=== PATIENT | female | born 1975 | race Hispanic/Latino ===

== ENCOUNTER 2017-06-17 22:04 | Emergency (ER) | payer SELFPAY ==
[~2017-06-17 22:04] MED LIST: ALBU8.5H8 IH; AMIL5TAB8 PO
[2017-06-17] MEDS ORDERED: PREDNISOLONE 15 MG/5 ML ONE (22:28)
== END 2017-06-17 23:32 | disposition home or self-care (01) ==
LOC: EDH 22:04
DX: G51.0 Bell's palsy (principal); J45.909 Unspecified asthma, uncomplicated; I11.0 Hypertensive heart disease with heart failure; I50.9 Heart failure, unspecified; E11.9 Type 2 diabetes mellitus without complications; Z91.041 Radiographic dye allergy status
CPT/HCPCS: 82948

== ENCOUNTER 2017-06-22 16:50 | Emergency (ER) | payer SELFPAY ==
[2017-06-22 17:29] LABS: AMPHET/METH SCREEN,URINE NEGATIVE (NEGATIVE); BARBITURATE SCREEN, URINE NEGATIVE (NEGATIVE); BENZODIAZEPINES SCREEN,URINE NEGATIVE (NEGATIVE); CANNABINOID SCREEN,URINE NEGATIVE (NEGATIVE); COCAINE SCREEN,URINE NEGATIVE (NEGATIVE); OPIATE SCREEN,URINE NEGATIVE (NEGATIVE); PHENCYCLIDINE SCREEN,URINE NEGATIVE (NEGATIVE)
[2017-06-22] MEDS ORDERED: SODIUM CHLORIDE 0.9% 1000ML 1,000 ML IV ONE (17:56)
[2017-06-22 18:00] LABS: EOSINOPHILS % (AUTO) 2.4 % (0.0-8.0); HEMATOCRIT 30.2 % (36-48); LYMPHOCYTES % (AUTO) 21.6 % (21.0-51.0); MEAN CORPUSCULAR HEMOGLOBIN 24.6 pg (27.0-33.0); MEAN CORPUSCULAR HGB CONC 32.9 g/dL (32.0-36.0); MEAN CORPUSCULAR VOLUME 74.9 fL (79-99); MONOCYTES % (AUTO) 12.9 % (3.0-13.0); NEUTROPHILS % (AUTO) 62.1 % (40.0-77.0); PLATELET COUNT (AUTO) 293 K/uL (130-400); RED BLOOD CELL COUNT(AUTO) 4.03 MIL/uL (4.00-5.50); RED CELL DISTRIBUTION WIDTH 17.2 % (11.0-15.5); WHITE BLOOD COUNT (AUTO) 7.1 K/uL (4.8-10.8)
[2017-06-22 18:07] LABS: POTASSIUM 4.1 mmol/L (3.5-5.1)
[2017-06-22] MEDS ORDERED: IPRATROPIUM/ALBUTEROL SULFATE 3 ML SOLUTION IH ONE (18:10)
[2017-06-22 18:12] LABS: ALBUMIN 2.9 g/dL (3.5-5.0); BILIRUBIN,DIRECT 0.1 mg/dL (0.0-0.3); BILIRUBIN,TOTAL 0.4 mg/dL (0.2-1.0)
[2017-06-22 18:48] LABS: B-TYPE NATRIURETIC PEPTIDE 19 pg/mL (0-100)
== END 2017-06-22 20:19 | disposition home or self-care (01) ==
LOC: EDH 16:50
DX: J09.X2 Influenza due to identified novel influenza A virus with other respiratory manifestations (principal); J20.9 Acute bronchitis, unspecified; R20.2 Paresthesia of skin; J45.909 Unspecified asthma, uncomplicated; I11.0 Hypertensive heart disease with heart failure; I50.9 Heart failure, unspecified; E11.9 Type 2 diabetes mellitus without complications; Z91.041 Radiographic dye allergy status
CPT/HCPCS: 36415; 70450; 71045; 80048; 80076; 80305; 81025; 82550; 83880; 84484; 85025; 87804 ×2; 93005; 94640; 96360; 96361; 99285; J7030

== ENCOUNTER 2017-07-31 08:17 | Emergency (ER) | payer OTHER ==
[2017-07-31 08:37] LABS: APPEARANCE,URINE Clear (CLEAR); BILIRUBIN,URINE Negative (NEGATIVE); COLOR,URINE Yellow (YELLOW); GLUCOSE, URINE (UA) Negative (NEGATIVE); KETONES,URINE Negative (NEGATIVE); LEUKOCYTE ESTERASE ,URINE Small (NEGATIVE); NITRATE,URINE Negative (NEGATIVE); OCCULT BLOOD,URINE Negative (NEGATIVE); PROTEIN,URINE Negative (NEGATIVE)
[2017-07-31] MEDS ORDERED: ACETAMINOPHEN-CODEINE ELIXIR 5 ML UDCUP ONE (08:38)
[2017-07-31 08:42] LABS: BACTERIA,URINE Rare /HPF (None Seen); HCG,QUAL RESULT NEGATIVE (NEGATIVE); SQUAMOUS EPITHELIAL CELL,UR Rare /LPF (0-2); WBC,URINE 0-1 /HPF (0-1)
== END 2017-07-31 09:11 | disposition home or self-care (01) ==
LOC: EDH 08:17
DX: M62.830 Muscle spasm of back (principal); M54.5 Low back pain; J45.909 Unspecified asthma, uncomplicated; I11.0 Hypertensive heart disease with heart failure; I50.9 Heart failure, unspecified; E11.9 Type 2 diabetes mellitus without complications; Z91.041 Radiographic dye allergy status
CPT/HCPCS: 81001; 81025

== ENCOUNTER 2017-08-16 20:41 | Emergency (ER) | payer SELFPAY ==
[2017-08-16] MEDS ORDERED: ASPIRIN 325 MG TABLET ONE (21:00)
[2017-08-16] MEDS ORDERED: MAG HYDROX/AL HYDROX/SIMETH ES 30 ML SUSP UDCUP ONE (21:00)
[2017-08-16] MEDS ORDERED: LIDOCAINE HCL 2% VISCOUS 15 ML UDCUP ONE (21:00)
[2017-08-16 21:01] LABS: BASOPHILS % (AUTO) 0.6 % (0.0-5.0); EOSINOPHILS % (AUTO) 2.1 % (0.0-8.0); HEMATOCRIT 29.9 % (36-48); LYMPHOCYTES % (AUTO) 32.5 % (21.0-51.0); MEAN CORPUSCULAR HEMOGLOBIN 26.5 pg (27.0-33.0); MEAN CORPUSCULAR VOLUME 75.7 fL (79-99); MONOCYTES % (AUTO) 5.2 % (3.0-13.0); NEUTROPHILS % (AUTO) 59.6 % (40.0-77.0); PLATELET COUNT (AUTO) 364 K/uL (130-400); RED BLOOD CELL COUNT(AUTO) 3.95 MIL/uL (4.00-5.50); RED CELL DISTRIBUTION WIDTH 17.9 % (11.0-15.5); WHITE BLOOD COUNT (AUTO) 8.6 K/uL (4.8-10.8)
[2017-08-16 21:17] LABS: INR 0.96 (0.85-1.15); PARTIAL THROMBOPLASTIN TIME 25.9 SEC (26.3-35.5); PROTHROMBIN TIME 10.1 SEC (9.6-11.6)
[2017-08-16 21:18] LABS: CARBON DIOXIDE 29 mmol/L (21-32); CHLORIDE 103 mmol/L (101-111); CREATININE 0.7 mg/dL (0.5-1.5); GLOMERULAR FILTR. RATE CALC 98 mL/min (>60); GLUCOSE,RANDOM 137 mg/dL (70-105); POTASSIUM 4.3 mmol/L (3.5-5.1); SODIUM SERUM 138 mmol/L (136-145); UREA NITROGEN, BLOOD 22 mg/dL (7-18)
[2017-08-16 21:33] LABS: ALANINE AMINOTRANSFERASE 50 U/L (12-78); ALBUMIN 3.2 g/dL (3.5-5.0); ASPARTATE AMINOTRANSFERASE 36 U/L (10-37); BILIRUBIN,TOTAL 0.4 mg/dL (0.2-1.0); CREATINE KINASE MB < 0.5 ng/mL (0.5-3.6); CREATINE KINASE, TOTAL 98 U/L (21-232); MYOGLOBIN 17 ng/mL (10-92); TOTAL PROTEIN, SERUM 7.8 g/dL (6.0-8.3)
[2017-08-16 21:38] LABS: B-TYPE NATRIURETIC PEPTIDE 23 pg/mL (0-100)
[2017-08-16] MEDS ORDERED: SODIUM CHLORIDE 0.9% 1000ML 1,000 ML IV ONE (22:29)
[2017-08-16] MEDS ORDERED: ONDANSETRON HCL 4 MG/2 ML VIAL ONE (22:29)
== END 2017-08-17 00:28 | disposition home or self-care (01) ==
LOC: EDH 20:41
DX: R07.89 Other chest pain (principal); J45.909 Unspecified asthma, uncomplicated; E11.9 Type 2 diabetes mellitus without complications; I11.0 Hypertensive heart disease with heart failure; I50.9 Heart failure, unspecified; Z91.041 Radiographic dye allergy status; Z98.51 Tubal ligation status; Z98.890 Other specified postprocedural states
CPT/HCPCS: 36415; 71045; 80053; 82550; 82553; 83874; 83880; 84484 ×2; 85025; 85610; 85730; 93005 ×3; 94761; 99285; J2405; J7030

== ENCOUNTER 2017-09-04 20:07 | Emergency (ER) | payer OTHER ==
[2017-09-04] MEDS ORDERED: ASPIRIN 325 MG TABLET ONE (22:36)
[2017-09-04] MEDS ORDERED: NITROGLYCERIN 1GM/1 INCH PACKET TD ONE (22:36)
[2017-09-04 23:39] LABS: BASOPHILS % (AUTO) 2.5 % (0.0-5.0); HEMATOCRIT 32.6 % (36-48); LYMPHOCYTES % (AUTO) 27.4 % (21.0-51.0); MEAN CORPUSCULAR HEMOGLOBIN 24.6 pg (27.0-33.0); MEAN CORPUSCULAR HGB CONC 32.5 g/dL (32.0-36.0); MEAN CORPUSCULAR VOLUME 75.8 fL (79-99); MONOCYTES % (AUTO) 5.5 % (3.0-13.0); NEUTROPHILS % (AUTO) 62.6 % (40.0-77.0); PLATELET COUNT (AUTO) 340 K/uL (130-400); RED CELL DISTRIBUTION WIDTH 17.1 % (11.0-15.5); WHITE BLOOD COUNT (AUTO) 8.2 K/uL (4.8-10.8)
[2017-09-04 23:43] LABS: CREATININE 0.6 mg/dL (0.5-1.5); POTASSIUM 3.5 mmol/L (3.5-5.1)
[2017-09-04 23:58] LABS: ALBUMIN 3.2 g/dL (3.5-5.0); BILIRUBIN,TOTAL 0.3 mg/dL (0.2-1.0); CREATINE KINASE MB 0.6 ng/mL (0.5-3.6); TOTAL PROTEIN, SERUM 7.8 g/dL (6.0-8.3)
[2017-09-05] MEDS ORDERED: ACETAMINOPHEN EXTRA STRENGTH 500 MG TABLET ONE (00:57)
== END 2017-09-05 02:05 | disposition home or self-care (01) ==
LOC: EDH 20:07
DX: R07.89 Other chest pain (principal); K20.9 Esophagitis, unspecified; I11.0 Hypertensive heart disease with heart failure; I50.9 Heart failure, unspecified; J45.909 Unspecified asthma, uncomplicated; E11.9 Type 2 diabetes mellitus without complications; Z98.51 Tubal ligation status; Z91.041 Radiographic dye allergy status; Z98.890 Other specified postprocedural states; Z79.899 Other long term (current) drug therapy
CPT/HCPCS: 36415; 71045; 80053; 82553; 84484; 85025; 86850; 86900; 86901; 93005; 99291

== ENCOUNTER 2017-10-03 21:49 | Emergency (ER) | payer MEDICAID, OTHER ==
[2017-10-03] MEDS ORDERED: ONDANSETRON ODT 4 MG TAB ONE (22:24)
[2017-10-03] MEDS ORDERED: ACETAMINOPHEN 325 MG TAB ONE (22:24)
[2017-10-03] MEDS ORDERED: ASPIRIN 325 MG TABLET ONE (22:24)
[2017-10-03 22:46] LABS: BASOPHILS % (AUTO) 0.9 % (0.0-5.0); EOSINOPHILS % (AUTO) 2.9 % (0.0-8.0); LYMPHOCYTES % (AUTO) 24.7 % (21.0-51.0); MEAN CORPUSCULAR HEMOGLOBIN 26.2 pg (27.0-33.0); MEAN CORPUSCULAR HGB CONC 34.2 g/dL (32.0-36.0); MEAN CORPUSCULAR VOLUME 76.6 fL (79-99); MONOCYTES % (AUTO) 5.8 % (3.0-13.0); NEUTROPHILS % (AUTO) 65.7 % (40.0-77.0); PLATELET COUNT (AUTO) 333 K/uL (130-400); RED BLOOD CELL COUNT(AUTO) 4.18 MIL/uL (4.00-5.50); RED CELL DISTRIBUTION WIDTH 16.4 % (11.0-15.5); WHITE BLOOD COUNT (AUTO) 9.8 K/uL (4.8-10.8)
[2017-10-03 22:56] LABS: CREATININE 0.9 mg/dL (0.5-1.5); POTASSIUM 3.9 mmol/L (3.5-5.1)
== END 2017-10-04 01:19 | disposition home or self-care (01) ==
LOC: EDH 21:49
DX: R07.89 Other chest pain (principal); R42 Dizziness and giddiness; R51 Headache; J45.909 Unspecified asthma, uncomplicated; E11.9 Type 2 diabetes mellitus without complications; I11.0 Hypertensive heart disease with heart failure; I50.9 Heart failure, unspecified; Z91.041 Radiographic dye allergy status
CPT/HCPCS: 36415; 80048; 84484; 85025; 93005; 99291

== ENCOUNTER 2017-12-05 06:44 | Emergency (ER) | payer MEDICAID, OTHER ==
[2017-12-05] MEDS ORDERED: KETOROLAC TROMETHAMINE 30MG/ML ONE (07:05)
[2017-12-05 07:26] LABS: APPEARANCE,URINE CLEAR (CLEAR); BILIRUBIN,URINE NEGATIVE (NEGATIVE); COLOR,URINE YELLOW (YELLOW); GLUCOSE, URINE (UA) NEGATIVE (NEGATIVE); KETONES,URINE NEGATIVE (NEGATIVE); LEUKOCYTE ESTERASE ,URINE SMALL (NEGATIVE); NITRATE,URINE NEGATIVE (NEGATIVE); OCCULT BLOOD,URINE NEGATIVE (NEGATIVE); PROTEIN,URINE NEGATIVE (NEGATIVE); UROBILINOGEN,URINE 0.2 mg/dL (0.2-1.0)
[2017-12-05 07:31] LABS: HCG,QUAL RESULT NEGATIVE (NEGATIVE)
[2017-12-05 07:37] LABS: BACTERIA,URINE Rare /HPF (None Seen); MUCUS,URINE Rare LPF (None Seen); RBC,URINE None Seen /HPF (0-1); SQUAMOUS EPITHELIAL CELL,UR Few /HPF (0-2); WBC,URINE 0-1 /HPF (0-1)
[2017-12-05 07:46] LABS: AMPHET/METH SCREEN,URINE NEGATIVE (NEGATIVE); BARBITURATE SCREEN, URINE NEGATIVE (NEGATIVE); BENZODIAZEPINES SCREEN,URINE NEGATIVE (NEGATIVE); CANNABINOID SCREEN,URINE NEGATIVE (NEGATIVE); COCAINE SCREEN,URINE NEGATIVE (NEGATIVE); OPIATE SCREEN,URINE NEGATIVE (NEGATIVE); PHENCYCLIDINE SCREEN,URINE NEGATIVE (NEGATIVE)
== END 2017-12-05 08:22 | disposition home or self-care (01) ==
LOC: EDH 06:44
DX: G89.29 Other chronic pain (principal); M54.5 Low back pain; M62.830 Muscle spasm of back; J45.909 Unspecified asthma, uncomplicated; I11.0 Hypertensive heart disease with heart failure; I50.9 Heart failure, unspecified; E11.9 Type 2 diabetes mellitus without complications; Z88.6 Allergy status to analgesic agent; Z91.041 Radiographic dye allergy status
CPT/HCPCS: 80305; 81001; 81025; 96372; 99284; J1885

== ENCOUNTER 2018-04-05 07:38 | Emergency (ER) | payer OTHER ==
[2018-04-05] MEDS ORDERED: DIAZEPAM 5 MG TABLET ONE (08:10)
[2018-04-05 08:30] LABS: BASOPHILS % (AUTO) 0.9 % (0.0-5.0); HEMATOCRIT 32.2 % (36-48); LYMPHOCYTES % (AUTO) 28.5 % (21.0-51.0); MEAN CORPUSCULAR HEMOGLOBIN 24.4 pg (27.0-33.0); MEAN CORPUSCULAR HGB CONC 32.9 g/dL (32.0-36.0); MEAN CORPUSCULAR VOLUME 74.2 fL (79-99); MONOCYTES % (AUTO) 4.3 % (3.0-13.0); NEUTROPHILS % (AUTO) 63.3 % (40.0-77.0); PLATELET COUNT (AUTO) 303 K/uL (130-400); RED BLOOD CELL COUNT(AUTO) 4.34 MIL/uL (4.00-5.50); RED CELL DISTRIBUTION WIDTH 17.4 % (11.0-15.5); WHITE BLOOD COUNT (AUTO) 6.9 K/uL (4.8-10.8)
[2018-04-05 08:36] LABS: CARBON DIOXIDE 29 mmol/L (21-32); CHLORIDE 102 mmol/L (101-111); CREATININE 0.6 mg/dL (0.5-1.5); GLOMERULAR FILTR. RATE CALC 117 mL/min (>60); GLUCOSE,RANDOM 122 mg/dL (70-105); POTASSIUM 5.9 mmol/L (3.5-5.1); SODIUM SERUM 135 mmol/L (136-145); UREA NITROGEN, BLOOD 15 mg/dL (7-18)
[2018-04-05 08:42] LABS: ALANINE AMINOTRANSFERASE 55 U/L (12-78); ALBUMIN 3.4 g/dL (3.5-5.0); ASPARTATE AMINOTRANSFERASE 78 U/L (10-37); BILIRUBIN,DIRECT < 0.1 mg/dL (0.0-0.3); BILIRUBIN,TOTAL 0.7 mg/dL (0.2-1.0); TOTAL PROTEIN, SERUM 8.6 g/dL (6.0-8.3)
[2018-04-05 09:59] LABS: B-TYPE NATRIURETIC PEPTIDE 9 pg/mL (0-100)
[2018-04-05] MEDS ORDERED: SODIUM CHLORIDE 0.9% 500ML 500 ML IV ONE (10:18)
[2018-04-05 12:09] LABS: CREATININE 0.6 mg/dL (0.5-1.5); POTASSIUM 4.2 mmol/L (3.5-5.1)
[2018-04-05] MEDS ORDERED: SODIUM CHLORIDE 0.9% 1000ML 1,000 ML IV ONE (15:19)
[2018-04-05] MEDS ORDERED: CEFTRIAXONE SODIUM 2 GM VIAL ONE (15:19)
[2018-04-05] MEDS ORDERED: ACETAMINOPHEN EXTRA STRENGTH 500 MG TABLET ONE ×2 (15:20→15:28)
[2018-04-05] MEDS ORDERED: ONDANSETRON HCL 4 MG/2 ML VIAL ONE (15:20)
[2018-04-05] MEDS ORDERED: KETOROLAC TROMETHAMINE 30MG/ML ONE (15:20)
== END 2018-04-05 12:41 | disposition home or self-care (01) ==
LOC: EDH 07:38
DX: R07.89 Other chest pain (principal); S13.8XXA Sprain of joints and ligaments of other parts of neck, initial encounter; J45.909 Unspecified asthma, uncomplicated; I11.0 Hypertensive heart disease with heart failure; I50.9 Heart failure, unspecified; E11.9 Type 2 diabetes mellitus without complications; Z88.6 Allergy status to analgesic agent; Z91.041 Radiographic dye allergy status; X58.XXXA Exposure to other specified factors, initial encounter; Y93.89 Activity, other specified; Y92.89 Other specified places as the place of occurrence of the external cause; Y99.8 Other external cause status
CPT/HCPCS: 36415; 71045; 80048 ×2; 80076; 83880; 84484 ×2; 85025; 93005 ×2; 99285; J0696; J1885; J2405; J7030; J7040

== ENCOUNTER 2018-06-14 21:33 | Emergency (ER) | payer OTHER ==
[2018-06-14] MEDS ORDERED: IPRATROPIUM/ALBUTEROL SULFATE 3 ML SOLUTION IH ONE (22:03)
[2018-06-14 22:16] LABS: BASOPHILS % (AUTO) 0.5 % (0.0-5.0); EOSINOPHILS % (AUTO) 7.3 % (0.0-8.0); HEMATOCRIT 29.7 % (36-48); LYMPHOCYTES % (AUTO) 23.4 % (21.0-51.0); MEAN CORPUSCULAR HEMOGLOBIN 23.4 pg (27.0-33.0); MEAN CORPUSCULAR HGB CONC 32.3 g/dL (32.0-36.0); MEAN CORPUSCULAR VOLUME 72.4 fL (79-99); MONOCYTES % (AUTO) 6.3 % (3.0-13.0); NEUTROPHILS % (AUTO) 62.5 % (40.0-77.0); PLATELET COUNT (AUTO) 333 K/uL (130-400); RED BLOOD CELL COUNT(AUTO) 4.11 MIL/uL (4.00-5.50); WHITE BLOOD COUNT (AUTO) 8.3 K/uL (4.8-10.8)
[2018-06-14 22:28] LABS: CREATININE 0.8 mg/dL (0.5-1.5); POTASSIUM 3.4 mmol/L (3.5-5.1)
[2018-06-14 22:32] LABS: ALBUMIN 3.3 g/dL (3.5-5.0); BILIRUBIN,TOTAL 0.4 mg/dL (0.2-1.0)
[2018-06-14 22:49] LABS: B-TYPE NATRIURETIC PEPTIDE 9 pg/mL (0-100)
== END 2018-06-14 23:11 | disposition home or self-care (01) ==
LOC: EDH 21:33
DX: J45.909 Unspecified asthma, uncomplicated (principal); I11.0 Hypertensive heart disease with heart failure; I50.9 Heart failure, unspecified; E11.9 Type 2 diabetes mellitus without complications; Z88.6 Allergy status to analgesic agent; Z98.51 Tubal ligation status; Z91.041 Radiographic dye allergy status
CPT/HCPCS: 36415; 71046; 80053; 82550; 83880; 84484; 85025; 93005; 94640

== ENCOUNTER 2018-06-24 08:24 | Emergency (ER) | payer SELFPAY | END 2018-06-24 08:44 | disposition home or self-care (01) | LOC: EDH 08:24 | DX: H10.9 Unspecified conjunctivitis (principal); Z88.6 Allergy status to analgesic agent; Z91.041 Radiographic dye allergy status ==

== ENCOUNTER 2018-09-11 03:12 | Emergency (ER) | payer SELFPAY | END 2018-09-11 04:30 | disposition left against medical advice (07) | LOC: EDH 03:12 | DX: M25.511 Pain in right shoulder (principal); E11.9 Type 2 diabetes mellitus without complications; I50.9 Heart failure, unspecified; Z53.21 Procedure and treatment not carried out due to patient leaving prior to being seen by health care provider; Z88.6 Allergy status to analgesic agent ==

== ENCOUNTER 2018-10-07 20:58 | Emergency (ER) | payer OTHER | END 2018-10-07 22:20 | disposition home or self-care (01) | LOC: EDH 20:58 | DX: S43.401A Unspecified sprain of right shoulder joint, initial encounter (principal); E11.9 Type 2 diabetes mellitus without complications; I50.9 Heart failure, unspecified; Z91.041 Radiographic dye allergy status; Z90.710 Acquired absence of both cervix and uterus; X58.XXXA Exposure to other specified factors, initial encounter; Y93.89 Activity, other specified; Y92.098 Other place in other non-institutional residence as the place of occurrence of the external cause; Y99.8 Other external cause status | CPT/HCPCS: 99282 ==

== ENCOUNTER 2018-12-01 10:52 | Emergency (ER) | payer OTHER ==
[2018-12-01] MEDS ORDERED: IBUPROFEN 400 MG TABLET ONE (11:03)
== END 2018-12-01 11:21 | disposition home or self-care (01) ==
LOC: EDH 10:52
DX: S90.121A Contusion of right lesser toe(s) without damage to nail, initial encounter (principal); I50.9 Heart failure, unspecified; E11.9 Type 2 diabetes mellitus without complications; Z88.5 Allergy status to narcotic agent; Z88.6 Allergy status to analgesic agent; Z91.041 Radiographic dye allergy status; Z98.890 Other specified postprocedural states; W22.8XXA Striking against or struck by other objects, initial encounter; Y93.89 Activity, other specified; Y92.89 Other specified places as the place of occurrence of the external cause; Y99.8 Other external cause status
CPT/HCPCS: 73630

== ENCOUNTER 2018-12-16 22:39 | Emergency (ER) | payer OTHER ==
[2018-12-16] MEDS ORDERED: ASPIRIN 325 MG TABLET ONE (23:02)
[2018-12-16 23:17] LABS: BASOPHILS % (AUTO) 1.2 % (0.0-5.0); EOSINOPHILS % (AUTO) 3.5 % (0.0-8.0); HEMATOCRIT 28.4 % (36-48); LYMPHOCYTES % (AUTO) 27.1 % (21.0-51.0); MEAN CORPUSCULAR HEMOGLOBIN 22.9 pg (27.0-33.0); MEAN CORPUSCULAR HGB CONC 32.4 g/dL (32.0-36.0); MEAN CORPUSCULAR VOLUME 70.7 fL (79-99); MONOCYTES % (AUTO) 6.3 % (3.0-13.0); NEUTROPHILS % (AUTO) 61.9 % (40.0-77.0); PLATELET COUNT (AUTO) 318 K/uL (130-400); RED BLOOD CELL COUNT(AUTO) 4.01 MIL/uL (4.00-5.50); WHITE BLOOD COUNT (AUTO) 9.7 K/uL (4.8-10.8)
[2018-12-16 23:30] LABS: CREATININE 0.7 mg/dL (0.5-1.5); POTASSIUM 3.9 mmol/L (3.5-5.1)
[2018-12-16 23:32] LABS: AMPHET/METH SCREEN,URINE NEGATIVE (NEGATIVE); BARBITURATE SCREEN, URINE NEGATIVE (NEGATIVE); BENZODIAZEPINES SCREEN,URINE NEGATIVE (NEGATIVE); CANNABINOID SCREEN,URINE NEGATIVE (NEGATIVE); COCAINE SCREEN,URINE NEGATIVE (NEGATIVE); OPIATE SCREEN,URINE NEGATIVE (NEGATIVE); PHENCYCLIDINE SCREEN,URINE NEGATIVE (NEGATIVE)
[2018-12-16 23:32] LABS: INR 1.02 (0.85-1.15); PARTIAL THROMBOPLASTIN TIME 28.5 SEC (26.3-35.5); PROTHROMBIN TIME 10.7 SEC (9.6-11.6)
[2018-12-16 23:40] LABS: ALBUMIN 3.4 g/dL (3.5-5.0); BILIRUBIN,TOTAL 0.4 mg/dL (0.2-1.0); TOTAL PROTEIN, SERUM 7.5 g/dL (6.0-8.3)
== END 2018-12-17 01:00 | disposition home or self-care (01) ==
LOC: EDH 22:39
DX: R00.2 Palpitations (principal); I50.9 Heart failure, unspecified; E11.9 Type 2 diabetes mellitus without complications; Z88.6 Allergy status to analgesic agent; Z91.041 Radiographic dye allergy status
CPT/HCPCS: 36415; 71045; 80053; 80305; 81025; 82550; 83874; 83880; 84484; 85025; 85610; 85730; 93005

== ENCOUNTER 2019-03-03 12:31 | Emergency (ER) | payer OTHER ==
[2019-03-03] MEDS ORDERED: CEPHALEXIN 500 MG CAPSULE ONE (13:25)
[2019-03-03] MEDS ORDERED: SULFAMETHOX-TMP DS 800/160 TAB ONE (13:26)
[2019-03-03] MEDS ORDERED: ACETAMINOPHEN EXTRA STRENGTH 500 MG TABLET ONE (13:26)
== END 2019-03-03 14:23 | disposition home or self-care (01) ==
LOC: EDH 12:31
DX: L03.116 Cellulitis of left lower limb (principal); I50.9 Heart failure, unspecified; E11.9 Type 2 diabetes mellitus without complications; Z98.890 Other specified postprocedural states; Z91.041 Radiographic dye allergy status; Z88.5 Allergy status to narcotic agent

== ENCOUNTER 2019-03-23 09:17 | Emergency (ER) | payer OTHER ==
[2019-03-23] MEDS ORDERED: ONDANSETRON ODT 4 MG TAB ONE (09:31)
[2019-03-23] MEDS ORDERED: DICYCLOMINE HCL 10 MG/ML 2ML AMP IM ONE (09:31)
[2019-03-23 09:48] LABS: BASOPHILS % (AUTO) 0.6 % (0.0-5.0); EOSINOPHILS % (AUTO) 6.1 % (0.0-8.0); HEMATOCRIT 29.7 % (36-48); LYMPHOCYTES % (AUTO) 27.6 % (21.0-51.0); MEAN CORPUSCULAR HEMOGLOBIN 23.1 pg (27.0-33.0); MEAN CORPUSCULAR HGB CONC 32.7 g/dL (32.0-36.0); MEAN CORPUSCULAR VOLUME 70.7 fL (79-99); MONOCYTES % (AUTO) 5.3 % (3.0-13.0); NEUTROPHILS % (AUTO) 60.4 % (40.0-77.0); PLATELET COUNT (AUTO) 352 K/uL (130-400); RED BLOOD CELL COUNT(AUTO) 4.21 MIL/uL (4.00-5.50); RED CELL DISTRIBUTION WIDTH 18.2 % (11.0-15.5); WHITE BLOOD COUNT (AUTO) 7.7 K/uL (4.8-10.8)
[2019-03-23 09:58] LABS: BILIRUBIN,URINE Negative (NEGATIVE); COLOR,URINE Yellow (YELLOW); GLUCOSE, URINE (UA) Negative (NEGATIVE); KETONES,URINE Negative (NEGATIVE); LEUKOCYTE ESTERASE ,URINE Moderate (NEGATIVE); NITRATE,URINE Negative (NEGATIVE); OCCULT BLOOD,URINE Negative (NEGATIVE); PROTEIN,URINE Negative (NEGATIVE)
[2019-03-23 10:00] LABS: APPEARANCE,URINE SLIGHTLY CLOUDY (CLEAR); CREATININE 0.6 mg/dL (0.5-1.5); POTASSIUM 4.1 mmol/L (3.5-5.1)
[2019-03-23 10:06] LABS: ALBUMIN 3.3 g/dL (3.5-5.0); BILIRUBIN,TOTAL 0.5 mg/dL (0.2-1.0)
[2019-03-23 10:14] LABS: BACTERIA,URINE Few /HPF (None Seen); RBC,URINE None Seen /HPF (0-1)
== END 2019-03-23 10:26 | disposition home or self-care (01) ==
LOC: EDH 09:17
DX: N39.0 Urinary tract infection, site not specified (principal); R11.2 Nausea with vomiting, unspecified; R19.7 Diarrhea, unspecified; E11.9 Type 2 diabetes mellitus without complications; I50.9 Heart failure, unspecified; Z91.041 Radiographic dye allergy status; Z88.5 Allergy status to narcotic agent; Z98.890 Other specified postprocedural states
CPT/HCPCS: 36415; 80053; 81001; 81025; 83690; 85025; 96372; 99284; J0500

== ENCOUNTER 2019-04-25 03:28 | Emergency (ER) | payer OTHER ==
[2019-04-25 04:00] LABS: BASOPHILS % (AUTO) 0.8 % (0.0-5.0); HEMATOCRIT 27.5 % (36-48); MEAN CORPUSCULAR HEMOGLOBIN 22.8 pg (27.0-33.0); MEAN CORPUSCULAR HGB CONC 32.5 g/dL (32.0-36.0); MEAN CORPUSCULAR VOLUME 70.1 fL (79-99); MONOCYTES % (AUTO) 5.8 % (3.0-13.0); NEUTROPHILS % (AUTO) 61.4 % (40.0-77.0); PLATELET COUNT (AUTO) 305 K/uL (130-400); RED BLOOD CELL COUNT(AUTO) 3.92 MIL/uL (4.00-5.50)
[2019-04-25 04:03] LABS: RAPID GROUP A STREP NEGATIVE (NEGATIVE)
[2019-04-25 04:12] LABS: CREATININE 0.7 mg/dL (0.5-1.5); POTASSIUM 4.5 mmol/L (3.5-5.1)
[2019-04-25 04:16] LABS: BILIRUBIN,TOTAL 0.3 mg/dL (0.2-1.0); TOTAL PROTEIN, SERUM 7.7 g/dL (6.0-8.3)
[2019-04-25 04:20] LABS: APPEARANCE,URINE Clear (CLEAR); BILIRUBIN,URINE Negative (NEGATIVE); COLOR,URINE Yellow (YELLOW); GLUCOSE, URINE (UA) Negative (NEGATIVE); KETONES,URINE Negative (NEGATIVE); LEUKOCYTE ESTERASE ,URINE Trace (NEGATIVE); NITRATE,URINE Negative (NEGATIVE); OCCULT BLOOD,URINE Negative (NEGATIVE); PROTEIN,URINE Negative (NEGATIVE)
[2019-04-25 04:23] LABS: HCG,QUAL RESULT NEGATIVE (NEGATIVE)
[2019-04-25 04:24] LABS: INR 1.01 (0.85-1.15); PARTIAL THROMBOPLASTIN TIME 26.2 SEC (26.3-35.5); PROTHROMBIN TIME 10.6 SEC (9.6-11.6)
[2019-04-25 04:33] LABS: BACTERIA,URINE Few /HPF (None Seen); RBC,URINE 0-1 /HPF (0-1); WBC,URINE 0-1 /HPF (0-1)
[2019-04-25] MEDS ORDERED: GUAIFENESIN-DM 200/20 MG 10 ML ONE (05:02)
[2019-04-25] MEDS ORDERED: DIPHENHYDRAMINE HCL 25 MG CAPSULE ONE (05:03)
[2019-04-25] MEDS ORDERED: METHYLPREDNISOLONE SOD SUCC 125MG/2ML VIAL ONE (05:03)
== END 2019-04-25 05:30 | disposition home or self-care (01) ==
LOC: EDH 03:28
DX: J01.90 Acute sinusitis, unspecified (principal); D64.9 Anemia, unspecified; E11.9 Type 2 diabetes mellitus without complications; I50.9 Heart failure, unspecified; Z91.041 Radiographic dye allergy status; Z88.6 Allergy status to analgesic agent; Z98.890 Other specified postprocedural states
CPT/HCPCS: 36415; 71045; 80053; 81001; 81025; 82550; 83880; 84484; 85025; 85610; 85730; 87804 ×2; 87880; 93005; 96374; 99285; J2930; Q0163

== ENCOUNTER 2020-06-26 15:02 | Emergency (ER) | payer OTHER ==
[2020-06-26 15:19] LABS: BASOPHILS % (AUTO) 0.2 % (0.0-5.0); EOSINOPHILS % (AUTO) 2.4 % (0.0-8.0); HEMATOCRIT 29.7 % (36-48); LYMPHOCYTES % (AUTO) 25.4 % (21.0-51.0); MEAN CORPUSCULAR HEMOGLOBIN 20.1 pg (27.0-33.0); MEAN CORPUSCULAR VOLUME 67.2 fL (79-99); NEUTROPHILS % (AUTO) 65.7 % (40.0-77.0); PLATELET COUNT (AUTO) 398 K/uL (130-400); RED BLOOD CELL COUNT(AUTO) 4.42 MIL/uL (4.00-5.50); RED CELL DISTRIBUTION WIDTH 19.2 % (11.0-15.5); WHITE BLOOD COUNT (AUTO) 10.1 K/uL (4.8-10.8)
[2020-06-26 15:29] LABS: CREATININE 0.6 mg/dL (0.5-1.5); POTASSIUM 4.2 mmol/L (3.5-5.1)
[2020-06-26 15:33] LABS: ALBUMIN 3.4 g/dL (3.5-5.0); BILIRUBIN,TOTAL 0.4 mg/dL (0.2-1.0); TOTAL PROTEIN, SERUM 8.4 g/dL (6.0-8.3)
[2020-06-26] MEDS ORDERED: ASPIRIN 81MG TAB.CHEW ONE (15:36)
[2020-06-26 15:49] LABS: INR 1.05 (0.85-1.15); PROTHROMBIN TIME 11.2 SEC (9.6-11.6)
[2020-06-26] MEDS ORDERED: LIDOCAINE HCL 2% VISCOUS 15 ML UDCUP ONE (17:47)
[2020-06-26] MEDS ORDERED: MAG HYDROX/AL HYDROX/SIMETH ES 30 ML SUSP UDCUP ONE (17:48)
[2020-06-26 18:11] LABS: APPEARANCE,URINE Clear (CLEAR); BILIRUBIN,URINE Negative (NEGATIVE); COLOR,URINE Yellow (YELLOW); GLUCOSE, URINE (UA) Negative (NEGATIVE); KETONES,URINE Negative (NEGATIVE); LEUKOCYTE ESTERASE ,URINE Trace (NEGATIVE); NITRATE,URINE Negative (NEGATIVE); OCCULT BLOOD,URINE Negative (NEGATIVE); PH,URINE 5.5 (5.0-8.0); PROTEIN,URINE Negative (NEGATIVE); UROBILINOGEN,URINE 0.2 mg/dL (0.2-1.0)
[2020-06-26 18:38] LABS: BACTERIA,URINE Rare /HPF (None Seen); RBC,URINE None Seen /HPF (0-1); SQUAMOUS EPITHELIAL CELL,UR 0-2 /HPF (0-2); WBC,URINE 0-1 /HPF (0-1)
== END 2020-06-26 20:46 | disposition home or self-care (01) ==
LOC: EDH 15:02
DX: R07.89 Other chest pain (principal); R10.13 Epigastric pain; I10 Essential (primary) hypertension; E11.9 Type 2 diabetes mellitus without complications; Z88.6 Allergy status to analgesic agent; Z91.041 Radiographic dye allergy status; Z98.890 Other specified postprocedural states; Z98.51 Tubal ligation status
CPT/HCPCS: 36415; 71045; 80053; 81001; 82550; 84484; 85025; 85610; 85730; 93005

== ENCOUNTER 2022-06-23 11:16 | Emergency (ER) | payer OTHER ==
[~2022-06-23] VITALS: Ht 165.1 cm; Wt 158.8 kg
[2022-06-23 13:58] LABS: BASOPHILS % (AUTO) 0.3 % (0.0-5.0); EOSINOPHILS % (AUTO) 1.9 % (0.0-8.0); HEMATOCRIT 33.7 % (36-48); LYMPHOCYTES % (AUTO) 24.2 % (21.0-51.0); MEAN CORPUSCULAR HEMOGLOBIN 22.7 pg (27.0-33.0); MEAN CORPUSCULAR HGB CONC 30.9 g/dL (32.0-36.0); MEAN CORPUSCULAR VOLUME 73.4 fL (79-99); MONOCYTES % (AUTO) 5.5 % (3.0-13.0); NEUTROPHILS % (AUTO) 67.7 % (40.0-77.0); PLATELET COUNT (AUTO) 345 K/uL (130-400); RED BLOOD CELL COUNT(AUTO) 4.59 MIL/uL (4.00-5.50); RED CELL DISTRIBUTION WIDTH 16.5 % (11.0-15.5); WHITE BLOOD COUNT (AUTO) 9.6 K/uL (4.8-10.8)
[2022-06-23 14:15] LABS: ALBUMIN 3.3 g/dL (3.5-5.0); CREATININE 0.8 mg/dL (0.5-1.5); POTASSIUM 4.2 mmol/L (3.5-5.1); TOTAL PROTEIN, SERUM 8.6 g/dL (6.0-8.3)
[2022-06-23] MEDS ORDERED: INSULIN HUMULIN R 100 UNIT/ML 3ML IV ONE (14:30)
[2022-06-23] MEDS ORDERED: 0.9%NACL 1000ML 1,000 ML IV ONE (14:30)
[2022-06-23 14:42] LABS: APPEARANCE,URINE CLEAR (CLEAR); BILIRUBIN,URINE NEGATIVE (NEGATIVE); COLOR,URINE COLORLESS (YELLOW); GLUCOSE, URINE (UA) >=1000 mg/dL (NEGATIVE); KETONES,URINE NEGATIVE (NEGATIVE); LEUKOCYTE ESTERASE ,URINE NEGATIVE Leu/uL (NEGATIVE); NITRATE,URINE NEGATIVE (NEGATIVE); OCCULT BLOOD,URINE NEGATIVE (NEGATIVE); PH,URINE 5.5 (5.0-8.0); PROTEIN,URINE NEGATIVE (NEGATIVE); UROBILINOGEN,URINE 0.2 mg/dL (0.2-1.0)
[2022-06-23 14:45] LABS: BACTERIA,URINE RARE /HPF (None Seen); MUCUS,URINE RARE LPF (None Seen); RBC,URINE 0-1 /HPF (0-1); SQUAMOUS EPITHELIAL CELL,UR FEW /HPF (0-2)
[2022-06-23] MEDS ORDERED: LISI10TA24 PO (15:45)
[2022-06-23] MEDS ORDERED: CEPH500B PO (15:45)
[2022-06-23 15:49] VITALS: BP 132/61
[2022-06-23] MEDS ORDERED: CEFTRIAXONE 1G VIAL IVP ONE (16:00)
[2022-06-23] MEDS ORDERED: MACR100 PO (16:05)
== END 2022-06-23 15:52 | disposition home or self-care (01) ==
LOC: EDH 11:16
DX: R30.0 Dysuria (principal); E11.65 Type 2 diabetes mellitus with hyperglycemia; I10 Essential (primary) hypertension; Z98.890 Other specified postprocedural states; Z88.6 Allergy status to analgesic agent; Z91.040 Latex allergy status; Z20.822 Contact with and (suspected) exposure to COVID-19
CPT/HCPCS: 99283; 96374; 87635; 96361; 80053; 85025; 82948; 81001; 36415; J1815; C9803; J7030

== ENCOUNTER 2023-12-03 06:54 | Emergency (ER) | payer BC ==
[~2023-12-03] VITALS: Ht 162.6 cm; Wt 153.3 kg
[~2023-12-03 06:54] MED LIST changes: +LISI10TA24 PO; +MACR100 PO
[2023-12-03] MEDS: KETOROLAC 60 MG VIAL (30MG/ML) IM ONE (08:26)
[2023-12-03] MEDS: MORPHINE 4 MG SYG IM ONE (08:27)
[2023-12-03] MEDS: LIDOCAINE 5% TOPICAL PATCH TP ONE (08:27)
[2023-12-03] MEDS ORDERED: IBUP-2077 PO (08:44)
[2023-12-03 08:56] VITALS: BP 150/67; PULSE 81; RESP 18; O2SAT 98
== END 2023-12-03 09:04 | disposition home or self-care (01) ==
LOC: EDH 06:54
DX: M54.31 Sciatica, right side (principal); M79.651 Pain in right thigh; I10 Essential (primary) hypertension; E11.9 Type 2 diabetes mellitus without complications; Z79.899 Other long term (current) drug therapy; Z98.890 Other specified postprocedural states; Z88.8 Allergy status to other drugs, medicaments and biological substances
CPT/HCPCS: 99284; 96372 ×2; J2270; J1885